=== PATIENT | male | born 1970 | race Two or more races ===

== ENCOUNTER 2016-09-18 19:13 | Emergency (ER) | payer MEDICAID ==
[~2016-09-18] VITALS: Ht 177.8 cm; Wt 82.0 kg
[2016-09-18 19:15] VITALS: BP 142/75
== END 2016-09-18 20:00 | disposition left against medical advice (07) ==
LOC: ER 19:14
DX: R45.851 Suicidal ideations (principal); Z53.21 Procedure and treatment not carried out due to patient leaving prior to being seen by health care provider